=== PATIENT | female | born 1985 | race African-American/Black ===

== ENCOUNTER 2016-06-19 17:13 | Emergency (ER) | payer MEDICAID ==
[~2016-06-19] VITALS: Ht 167.6 cm; Wt 97.1 kg
[~2016-06-19 17:13] MED LIST: CLOBETASOL PROP0.05% TP
--- NOTE | 2016-06-19 17:15 | NUR ---
Patient ambulated to bed 4. RN evaluating patient at bedside.
[2016-06-19 17:21] VITALS: BP 143/97
--- NOTE | 2016-06-19 17:21 | NUR ---
30/F BIB SELF C/O SKIN RASH TO HANDS NECK AND SCALP X 2 WEEKS. PT DENIES N/V/D; SKIN IS PINK/WARM/DRY; AAOX4 WITH EVEN AND STEADY GAIT; LUNGS CLEAR BL; HR EVEN AND REGULAR; PT DENIES ANY FEVER, CP, SOB, OR COUGH AT THIS TIME; PATIENT STATES PAIN OF 6/10 AT THIS TIME; VSS; PATIENT POSITIONED FOR COMFORT; HOB ELEVATED; BEDRAILS UP X2; BED DOWN. ER MD MADE AWARE OF PT STATUS.
--- NOTE | 2016-06-19 17:23 | NUR ---
Dr. Flores evaluating patient at bedside.
[2016-06-19] MEDS ORDERED: diphenhydrAMINE 50 MG/ML VIAL IM ONE (17:35)
[2016-06-19] MEDS ORDERED: DEXAMETHASONE 10 MG/ML VIAL IM ONE (17:35)
--- NOTE | 2016-06-19 17:55 | NUR ---
Patient discharged with v/s stable. Written and verbal after care instructions given and explained. Patient alert, oriented and verbalized understanding of instructions. Ambulatory with steady gait. All questions addressed prior to discharge. ID band removed. Patient advised to follow up with PMD. Rx of BENADRYL/TRIAMCINOLONE given. Patient educated on indication of medication including possible reaction and side effects. Opportunity to ask questions provided and answered.
[2016-06-19 17:56] VITALS: BP 132/78
== END 2016-06-19 17:55 | disposition home or self-care (01) ==
LOC: MED 17:15
PROC: 3E033GC Introduction of Other Therapeutic Substance into Peripheral Vein, Percutaneous Approach (ICD-10-PCS; principal; 2016-06-19)
DX: L30.1 Dyshidrosis [pompholyx] (principal); R03.0 Elevated blood-pressure reading, without diagnosis of hypertension; F17.200 Nicotine dependence, unspecified, uncomplicated; F15.90 Other stimulant use, unspecified, uncomplicated
CPT/HCPCS: 96372; 99284; J1100; J1200

== ENCOUNTER 2017-04-05 12:45 | Emergency (ER) | payer MEDICAID ==
[~2017-04-05] VITALS: Ht 167.6 cm; Wt 86.2 kg
[2017-04-05 12:50] VITALS: BP 133/88
[2017-04-05] MEDS ORDERED: FAMOTIDINE 20 MG TAB PO ONE (15:20)
[2017-04-05] MEDS ORDERED: ONDANSETRON 4 MG ODT PO ONE ×2 (15:20→16:05)
--- NOTE | 2017-04-05 15:30 | NUR ---
PT PRESENTS TO ER FOR EVALUATION OF N/V/D SINCE LAST NOC.PT DENIES ANY MEDICAL HX. SKIN IS PINK/WARM/DRY; AAOX4 WITH EVEN AND STEADY GAIT; LUNGS CLEAR BL; HR EVEN AND REGULAR; PT DENIES ANY FEVER, CP, SOB, OR COUGH AT THIS TIME; PATIENT STATES PAIN OF 7/10 AT THIS TIME; PATIENT POSITIONED FOR COMFORT; HOB ELEVATED; BEDRAILS UP X2; BED DOWN. ER MD MADE AWARE OF PT STATUS.
--- NOTE | 2017-04-05 16:45 | NUR ---
Patient discharged with v/s stable. Written and verbal after care instructions given and explained. Patient alert, oriented and verbalized understanding of instructions. Ambulatory with steady gait. All questions addressed prior to discharge. ID band removed. Patient advised to follow up with PMD. Rx of ZOFRAN,BENTYL,FLEXERIL AND LOPERAMIDE given. Patient educated on indication of medication including possible reaction and side effects. Opportunity to ask questions provided and answered.
[2017-04-05 16:46] VITALS: BP 133/88
== END 2017-04-05 16:45 | disposition home or self-care (01) ==
LOC: MED 12:45
DX: R10.9 Unspecified abdominal pain (principal); R11.10 Vomiting, unspecified; R19.7 Diarrhea, unspecified; M54.2 Cervicalgia; Z90.89 Acquired absence of other organs
CPT/HCPCS: 81002; 81025; 99284; Q0163; S0119

== ENCOUNTER 2017-08-10 08:49 | Emergency (ER) | payer MEDICAID ==
[~2017-08-10] VITALS: Ht 167.6 cm; Wt 97.5 kg
[2017-08-10 09:06] VITALS: BP 133/108
[2017-08-10] MEDS ORDERED: KETOROLAC 60 MG/2 ML VIAL IM ONE (09:45)
[2017-08-10 10:40] VITALS: BP 146/104
== END 2017-08-10 10:40 | disposition home or self-care (01) ==
LOC: MED 08:49
DX: M54.5 Low back pain (principal); X50.0XXA Overexertion from strenuous movement or load, initial encounter; Y93.89 Activity, other specified; Y92.89 Other specified places as the place of occurrence of the external cause; Y99.8 Other external cause status
CPT/HCPCS: 81002; 81025; 96372; 99283; J1885

== ENCOUNTER 2017-08-26 12:47 | Emergency (ER) | payer MEDICAID ==
[~2017-08-26] VITALS: Ht 167.6 cm; Wt 93.0 kg
[2017-08-26 13:04] VITALS: BP 122/89
--- NOTE | 2017-08-26 13:04 | NUR ---
PT AMBULATES WITH STEADY GAIT TO BED 10 AT THIS TIME.
--- NOTE | 2017-08-26 13:05 | NUR ---
32 YO F BIB SELF W/ C/O DISCOMFORT/ITCHING DUE TO EXACERBATION OF ECZEMA THAT HAS WORSENED IN THE LAST 2-3 DAYS. ECZEMA NOTED ON BACK/NECK/BETWEEN SHOULDERS. SKIN IS INTACT. PT REQUESTING CREAM/OINTMENT TO CALM THE ITCHING. PT A&O X 4. GCS 15. CMS INTACT. RR EVEN AND UNLABORED. LUNG SOUNDS BILAT CLEAR. ABD SOFT, NON-TENDER. ER MD MAGANA NOTIFIED. SAFETY PRECAUTIONS IN PLACE. PT NEEDS MET. WILL CONTINUE TO MONITOR.
[2017-08-26 13:54] VITALS: BP 122/89
--- NOTE | 2017-08-26 13:54 | NUR ---
Patient discharged with v/s stable. Written and verbal after care instructions given and explained. Patient alert, oriented and verbalized understanding of instructions. Ambulatory with steady gait. All questions addressed prior to discharge. ID band removed. Patient advised to follow up with PMD. Rx of Methylprednisolone and Triamcinolone given. Patient educated on indication of medication including possible reaction and side effects. Opportunity to ask questions provided and answered.
== END 2017-08-26 13:54 | disposition home or self-care (01) ==
LOC: MED 12:47
DX: L30.8 Other specified dermatitis (principal)
CPT/HCPCS: 99283

== ENCOUNTER 2018-03-19 08:38 | Emergency (ER) | payer MEDICAID ==
[~2018-03-19] VITALS: Ht 167.6 cm; Wt 85.3 kg
[2018-03-19 08:59] VITALS: BP 141/96
--- NOTE | 2018-03-19 09:04 | NUR ---
PT AMBULATES TO BED 2
--- NOTE | 2018-03-19 09:07 | NUR ---
C/O URINARY FREQUENCY WITH DARK, FOUL SMELLING URINE X 2 DAYS; DENIES BURNING URINATION. DENIES N/V/D; SKIN IS PINK/WARM/DRY; AAOX4 WITH EVEN AND STEADY GAIT; LUNGS CLEAR BL; HR EVEN AND REGULAR; PT DENIES ANY FEVER, CP, SOB, OR COUGH AT THIS TIME; PATIENT STATES PAIN OF 0/10 AT THIS TIME; VSS; PATIENT POSITIONED FOR COMFORT; HOB ELEVATED; BEDRAILS UP X2; BED DOWN. ER MD MADE AWARE OF PT STATUS.
--- NOTE | 2018-03-19 09:18 | NUR ---
Patient being evaluated by physician at bedside.
[2018-03-19 09:34] VITALS: BP 138/82
== END 2018-03-19 09:35 | disposition home or self-care (01) ==
LOC: MED 08:38
DX: N39.0 Urinary tract infection, site not specified (principal)
CPT/HCPCS: 81002; 81025; 99283

== ENCOUNTER 2018-08-04 23:01 | Emergency (ER) | payer MEDICAID ==
[~2018-08-04] VITALS: Ht 167.6 cm; Wt 93.0 kg
[2018-08-04 23:15] VITALS: BP 144/93
--- NOTE | 2018-08-04 23:22 | NUR ---
PT AMBULATED TO LOBBY. PROVIDING URINE.
--- NOTE | 2018-08-05 00:51 | NUR ---
PT AMBULATED TO BED 10.
[2018-08-05 00:59] LABS: APPEARANCE,URINE CLOUDY (CLEAR); BILIRUBIN,URINE NEGATIVE (NEGATIVE); BLOOD, URINE 3+ (NEGATIVE); COLOR,URINE YELLOW (YELLOW); LEUKOCYTE ESTERASE ,URINE 1+ (NEGATIVE); NITRITE, URINE NEGATIVE (NEGATIVE); PH,URINE 6.5 (5.0-9.0); UGLUCOSE NEGATIVE (NEGATIVE)
[2018-08-05 01:16] LABS: URINE AMORPHOUS URATE 1+ /HPF (None Seen)
--- NOTE | 2018-08-05 01:16 | NUR ---
GENERALIZED RED RASH TRUNK AND X4 EXTREMITIES X 1 WK. ITSCHING/BURNING OVER RASH. ALSO C/O BURNING WITH URINATION WITH STRONG ODOR. NO VAGINAL DISCHARGE. PAIN 5/10
[2018-08-05 03:15] VITALS: BP 136/84
--- NOTE | 2018-08-05 03:16 | NUR ---
Patient discharged with v/s stable. Written and verbal after care instructions given and explained. Patient alert, oriented and verbalized understanding of instructions. Ambulatory with steady gait. All questions addressed prior to discharge. ID band removed. Patient advised to follow up with PMD. Rx of Prednisone, Keflex, Benadryl given. Patient educated on indication of medication including possible reaction and side effects. Opportunity to ask questions provided and answered.
== END 2018-08-05 03:16 | disposition home or self-care (01) ==
LOC: MED 23:01
DX: L30.9 Dermatitis, unspecified (principal); N39.0 Urinary tract infection, site not specified
CPT/HCPCS: 81001; 86592; 87086; 99283

== ENCOUNTER 2018-12-01 18:01 | Emergency (ER) | payer SELFPAY ==
[~2018-12-01] VITALS: Ht 170.2 cm; Wt 88.9 kg
[2018-12-01 18:15] VITALS: BP 138/76
[2018-12-01] MEDS ORDERED: NACL 0.9% 1,000 ML IV ONE (18:20)
[2018-12-01] MEDS ORDERED: ASPIRIN 81 MG TAB.CHEW PO ONE (18:20)
--- NOTE | 2018-12-01 18:28 | NUR ---
33F C/O NON RADIATING, NON-PLEURITIC L SIDED CHEST TIGHTNESS/PRESSURE 5/10 X1 DAY. PAIN STARTED YESTERDAY WHILE TRYING TO SLEEP. DENIED N/V, SOB, DIAPHORESIS, TRAUMA/INJURY. DENIES PAIN VARIATION WITH EXERTION. PT SKIN DRY AND COLOR NFE. PAIN COMES AND GOES. PT REPORTS FEELING ANXIOUS/UPSET PRIOR TO THE PAIN STARTING. STATES A FAMILY MEMBER RECENTLY. CHEST NON-TENDER TO PALPATION. HX: NONE RX: NONE
--- NOTE | 2018-12-01 18:32 | NUR ---
DR. MARTINEZ AT BEDSIDE EVALUATING PT. CLEAN UP WORKER AT BEDSIDE DRAWING BLOOD.
[2018-12-01] MEDS ORDERED: KETOROLAC 30 MG/ML VIAL IVP ONE (18:35)
[2018-12-01 18:46] LABS: BASOPHILS % (AUTO) 0.4 % (0.0-2.0); EOSINOPHILS # (AUTO) 0.1 K/uL (0-0.4); EOSINOPHILS % (AUTO) 0.7 % (0.0-4.0); HEMATOCRIT 39.7 % (36-48); HEMOGLOBIN 13.2 g/dL (12.0-16.0); LYMPHOCYTES # (AUTO) 2.6 K/uL (2.5-16.5); LYMPHOCYTES % (AUTO) 23.3 % (20.5-51.1); MEAN CORPUSCULAR HEMOGLOBIN 30 pg (27-31); MEAN CORPUSCULAR HGB CONC 33 g/dL (33-37); MEAN CORPUSCULAR VOLUME 90.5 fL (80-94); MONOCYTES # (AUTO) 0.7 K/uL (0.8-1.0); MONOCYTES % (AUTO) 6.7 % (1.7-9.3); NEUTROPHILS # (AUTO) 7.6 K/uL (1.8-7.7); NEUTROPHILS % (AUTO) 68.9 % (42.2-75.2); PLATELET COUNT (AUTO) 410 K/uL (140-450); RED BLOOD CELL COUNT(AUTO) 4.39 MIL/uL (4.20-5.40); RED CELL DISTRIBUTION WIDTH 13.1 % (11.6-13.7)
[2018-12-01 19:10] LABS: ANION GAP 11.4 (8-16); CARBON DIOXIDE 27.5 mmol/L (21-32); POTASSIUM 3.9 mmol/L (3.5-5.1)
--- NOTE | 2018-12-01 19:15 | NUR ---
BEDSIDE REPORT RECEIVED FROM OLU ELDRIDGE. [facility] AT THIS TIME.
[2018-12-01 19:18] LABS: ALBUMIN 3.6 g/dL (3.4-5.0); TOTAL BILIRUBIN 0.5 mg/dL (0.0-1.0)
[2018-12-01] MEDS ORDERED: DIAZEPAM 5 MG TAB PO ONE (19:50)
[2018-12-01 20:05] VITALS: BP 123/77
--- NOTE | 2018-12-01 20:05 | NUR ---
PT AWAKE. VSS. BED IN LOWEST POSTION. WILL CONTINUE TO MONITOR.
--- NOTE | 2018-12-01 20:07 | NUR ---
PT WENT TO CT, DOCUMENT SIGNED FOR CONTRAST
--- NOTE | 2018-12-01 21:17 | NUR ---
PT AMBUALTED TO RESTROOM, GAIT STEADY
--- NOTE | 2018-12-01 21:54 | NUR ---
Patient discharged with v/s stable. Written and verbal after care instructions given and explained. Patient alert, oriented and verbalized understanding of instructions. Ambulatory with steady gait. All questions addressed prior to discharge. ID band removed. Patient advised to follow up with PMD. Rx of naprosyn and valium given. Patient educated on indication of medication including possible reaction and side effects. Opportunity to ask questions provided and answered.
== END 2018-12-01 21:54 | disposition home or self-care (01) ==
LOC: MED 18:01
DX: R07.89 Other chest pain (principal); F17.200 Nicotine dependence, unspecified, uncomplicated
CPT/HCPCS: 36415; 71045; 71275; 80053; 81025; 84484; 85025; 93005; 96374; 99284; J1885; Q0092; Q9967; J7030